=== PATIENT | male | born 1995 | race Caucasian/White ===

== ENCOUNTER 2023-08-23 13:00 | Emergency (ER) | payer BC, SELFPAY ==
[2023-08-23] VITALS (19 sets, daily range): BP systolic 137–150; BP diastolic 84–102; PULSE 78–96; RESP 7–21; TEMP 36.8; O2SAT 96–98
--- NOTE | 2023-08-23 13:46 | ECG_ITS ---
[facility] Test Date: 2023-08-23 Pat Name: NOA MURRELL Department: Room: - Gender: Male Transitional Care Nurse: : 1995 Requested By: [id number] Order Number: [id number] Reading MD: MARKO NIELSON Measurements Intervals [place] Rate: 83 P: 51 AK: 150 QRS: 41 QRSD: 136 T: 60 QT: 398 QTc: 438 Interpretive Statements 1100 Sinus rhythm 2550 Left bundle branch block 9150 abnormal ECG Compared to ECG 02/11/2017 21:09:04 Sinus tachycardia no longer present Right-axis deviation no longer present Electronically Signed On 08-24-2023 6:41:03 EDT by MARKO NIELSON
--- NOTE | 2023-08-23 14:07 | ED_ITS ---
HPI - General Adult General Chief complaint: Chest Pain Stated complaint: CHEST/ABDOMINAL PAIN Time Seen by Provider: 08/23/23 13:59 Source: patient Mode of arrival: walk-in Limitations: no limitations History of Present Illness HPI narrative: This patient presents emergency room for evaluation of epigastric and periumbilical pain. He also noticed that his bowel movements turned black about 5 days ago. Prior to this time he was having some pain and discomfort in his right foot which she felt was gout. He started taking Aleve and then he went saw his doctor who then placed him on another medicine for his gout. It was after this time that he noticed his bowel movements were black. He also notes that as a young child or young adult rather he had a history of acid reflux and used to take medicine. He remembers having endoscopy when he was much younger but he denies any history of peptic ulcer disease. He is not been vomiting up any blood. He does use alcohol in the past but he quit drinking completely several months ago. He has no other bleeding disorders today. He does notice a little bit of fatigability but no severe dyspnea. An EKG was done on the patient on his arrival here and it shows left bundle branch block. He is a very good historian and tells me that he has had this problem in the past and that it was thoroughly investigated by head control clerk in [place]. He says no treatment recommendations were made. He does have high blood pressure. His medical record indicates that they started him on colchicine Related Data Home Medications ?Medication ?Instructions ?Recorded ?Confirmed citalopram 20 mg tablet 30 mg PO DAILY 08/23/23 08/23/23 colchicine 0.6 mg tablet 0.6 mg PO BID 08/23/23 08/23/23 hydrochlorothiazide 25 mg tablet 25 mg PO DAILY 08/23/23 08/23/23 lisinopril 10 mg tablet 10 mg PO DAILY 08/23/23 08/23/23 Allergies Allergy/AdvReac Type Severity Reaction Status Date / Time No Known Drug Allergies Allergy Verified 08/23/23 13:39 Exam Narrative Exam Narrative: 27-year-old does not appear in any distress. His vital signs are stable with no tachycardia. Examining HEENT there is no evidence of pallor or anemia or scleral icterus. Examination abdomen is soft and supple he does have some periumbilical tenderness. There is no peritoneal findings guarding or rebound. There is no hepatosplenomegaly. Extremities have no evidence of peripheral edema. Mentation cognition are completely normal. Rectal examination was done with the nurse. Prostate was not tender or enlarged to digital examination a small amount of rectal secretions were done that were brownish-yellow in color. There is no blood clot there is no evidence of fissures or fistulas or trauma to the perirectal tissue. Constitutional Vital Signs, click to edit/add: Last Vital Signs Temp 98.2 F 08/23/23 13:41 Pulse 89 08/23/23 13:41 Resp 20 08/23/23 13:41 BP 137/102 H 08/23/23 13:41 Pulse Ox 97 08/23/23 13:41 O2 Del Method Room Air 08/23/23 13:41 Course Vital Signs Vital signs: Vital Signs Temperature 98.2 F 08/23/23 13:41 Pulse Rate 89 08/23/23 13:41 Respiratory Rate 20 08/23/23 13:41 Blood Pressure 137/102 H 08/23/23 13:41 Pulse Oximetry 97 08/23/23 13:41 Oxygen Delivery Method Room Air 08/23/23 13:41 Temperature 98.2 F 08/23/23 13:41 Pulse Rate 89 08/23/23 13:41 Respiratory Rate 20 08/23/23 13:41 Blood Pressure 137/102 H 08/23/23 13:41 Pulse Oximetry 97 08/23/23 13:41 Oxygen Delivery Method Room Air 08/23/23 13:41 Medical Decision Making MDM Narrative Medical decision making narrative: Patient's laboratory studies were discussed and are essentially normal. There is no elevation of his BUN. His hemoglobin is stable despite having 5 days of black stool by history. His occult blood testing is negative as well. He had been given Protonix here in the IV. I think he should follow-up with her primary care doctor if the symptoms would persist and he should stay off the colchicine for the gout and no more NSAIDs. He can consider GI follow-up. Lab Data Labs: Lab Results 08/23/23 08/23/23 Range/Units 14:34 14:35 WBC 10.9 (4.0-11.0) 10^3/uL RBC 4.65 L (4.70-6.10) 10^6/uL Hgb 14.7 (14.0-18.0) g/dL Hct 42.5 (42.0-54.0) % MCV 91.4 (80.0-94.0) fL MCH 31.6 (25.9-34.0) pg MCHC 34.6 (29.9-35.2) g/dL RDW 11.5 (11.0-15.0) % Plt Count 342 (150-450) 10^3/uL MPV 9.6 (9.5-13.5) fL Neut % (Auto) 82.8 H (43.0-75.0) % Lymph % (Auto) 9.5 L (20.5-60.0) % [place] % (Auto) 6.9 (1.7-12.0) % Eos % (Auto) 0.1 L (0.9-7.0) % Baso % (Auto) 0.5 (0.2-2.0) % Neut # (Auto) 9.0 H (1.4-6.5) 10^3/uL Lymph # (Auto) 1.0 L (1.2-3.8) 10^3/uL [place] # (Auto) 0.8 (0.3-0.8) 10^3/uL Eos # (Auto) 0.0 (0.0-0.7) 10^3/uL Baso # (Auto) 0.1 (0.0-0.1) 10^3/uL Abs Immat Gran (auto) 0.02 (0.00-0.03) 10^3/uL Imm/Tot Granulo (auto) 0.2 (0.0-0.5) % PT 10.7 (9.0-11.6) sec INR 1.01 Sodium 138 (136-145) mmol/L Potassium 3.9 (3.5-5.1) mmol/L Chloride 98 (98-107) mmol/L Carbon Dioxide 26.3 (21.0-32.0) mmol/L Anion Gap 17.6 BUN 17.0 (7.0-18.0) mg/dL Creatinine 0.90 (0.70-1.30) mg/dL Est GFR ( Amer) >60 (>=60) Est GFR (Non-Af Amer) >60 (>=60) BUN/Creatinine Ratio 18.9 Glucose 99 (74-106) mg/dL Calcium 9.4 (8.5-10.1) mg/dL Total Bilirubin 0.5 (0.2-1.0) mg/dL AST 13 L (15-37) U/L ALT 35 (16-63) U/L Alkaline Phosphatase 109 (46-116) U/L Total Protein 8.1 (6.4-8.2) g/dL Albumin 4.0 (3.4-5.0) g/dL Globulin 4.1 g/dL Albumin/Globulin Ratio 1.0 Lipase 16.0 (16.0-77.0) U/L Stool Occult Blood Negative Blood Type A Positive Antibody Screen Negative Discharge Plan Discharge Stand Alone Forms: Portal Instructions Chief Complaint: Chest Pain Clinical Impression: Abdominal pain Patient Disposition: Home, Self-Care Time of Disposition Decision: 16:06 Prescriptions / Home Meds: No Action citalopram 20 mg tablet 30 mg PO DAILY colchicine 0.6 mg tablet 0.6 mg PO BID hydrochlorothiazide 25 mg tablet 25 mg PO DAILY lisinopril 10 mg tablet 10 mg PO DAILY Print Language: Croatian Additional Instructions: Follow-up with your primary care doctor or occupational health physiotherapist if symptoms persist. Stop colchicine and Aleve. Start Prilosec Referrals: Physician,Non-Staff, MD [Primary Care Provider] - 1 week
--- NOTE | 2023-08-23 14:08 | XR_ITS ---
The [address] [address] Patient Name: NOA MURRELL MRN: [id number] date: 1995 Sex: M Assigned Patient Location: ER Current Patient Location: ER Accession/Order Number: [id number] Exam Date: 08/23/2023 14:20 Report Date: 08/23/2023 14:45 At the request of: EAGLE GONZALES Procedure: XR chest 1V EXAMINATION: XR chest 1V HISTORY: Chest pain COMPARISON: No relevant comparison available. FINDINGS: LUNGS: No significant pulmonary parenchymal abnormalities. VASCULATURE: No increased pulmonary vasculature. PLEURA: No pneumothorax, effusion, or pleural thickening. CARDIAC: No cardiomegaly or cardiac silhouette abnormality. MEDIASTINUM: No visible mass or adenopathy. BONES: No fracture or visible bone lesion. OTHER: Negative. XR/XR chest 1V IMPRESSION: 1. Normal chest. Electronically authenticated by: ALINE MATHUR Date: 08/23/2023 14:45
[2023-08-23] MEDS: PANTOPRAZOLE SODIUM 40 MG VIAL IV (14:45)
[2023-08-23] MEDS: 0.9 % SODIUM CHLORIDE 1,000 ML 999 ML IV (14:45)
[2023-08-23 15:00] LABS: Basophils Absolute Auto 0.1 10^3/uL (0.0-0.1); Basophils Percent Auto 0.5 % (0.2-2.0); Eosinophils Percent Auto 0.1 % (0.9-7.0); Hematocrit 42.5 % (42.0-54.0); Hemoglobin 14.7 g/dL (14.0-18.0); Immature Granulocytes Abs Auto 0.02 10^3/uL (0.00-0.03); Immature Granulocytes Pct Auto 0.2 % (0.0-0.5); Lymphocytes Percent Auto 9.5 % (20.5-60.0); Mean Corpuscular HGB Conc 34.6 g/dL (29.9-35.2); Mean Corpuscular Hemoglobin 31.6 pg (25.9-34.0); Mean Corpuscular Volume 91.4 fL (80.0-94.0); Mean Platelet Volume 9.6 fL (9.5-13.5); Monocytes Absolute Auto 0.8 10^3/uL (0.3-0.8); Monocytes Percent Auto 6.9 % (1.7-12.0); Neutrophils Percent Auto 82.8 % (43.0-75.0); Platelet Count 342 10^3/uL (150-450); Red Blood Count 4.65 10^6/uL (4.70-6.10); Red Cell Distribution Width 11.5 % (11.0-15.0); White Blood Count 10.9 10^3/uL (4.0-11.0)
[2023-08-23 15:11] LABS: Alanine Aminotransferase 35 U/L (16-63); Alkaline Phosphatase 109 U/L (46-116); Anion Gap 17.6; Aspartate Amino Transferase 13 U/L (15-37); BUN Creatinine Ratio 18.9; Bilirubin Total 0.5 mg/dL (0.2-1.0); Calcium 9.4 mg/dL (8.5-10.1); Carbon Dioxide 26.3 mmol/L (21.0-32.0); Chloride 98 mmol/L (98-107); Estimated GFR (African America >60 (>=60); Estimated GFR (Non-African Ame >60 (>=60); Globulin 4.1 g/dL; Glucose 99 mg/dL (74-106); Potassium 3.9 mmol/L (3.5-5.1); Sodium 138 mmol/L (136-145); Total Protein 8.1 g/dL (6.4-8.2)
[2023-08-23 15:18] LABS: INR 1.01; Prothrombin Time 10.7 sec (9.0-11.6)
[2023-08-23 15:48] LABS: Occult Blood Negative
== END 2023-08-23 16:23 | disposition home or self-care (01) ==
PROVIDERS: Emergency Provider Emergency Medicine Emergency Medical Services
DX: R10.9 Unspecified abdominal pain (principal); Z79.899 Other long term (current) drug therapy
CPT/HCPCS: 36415; 71045; 80053; 83690; 85025; 85610; 86850; 86900; 86901; 93005; 96374; 99285; G0328